=== PATIENT | female | born 1950 | race Caucasian/White ===

== ENCOUNTER 2017-09-15 15:40 | Emergency (ER) | payer MEDICARE, MEDICAID ==
[~2017-09-15] VITALS: Ht 160 cm; Wt 111.0 kg
[~2017-09-15 15:40] MED LIST: ALBU18HF INH; ALPR0.254 PO; AMIL5TAB2 PO; AMIO400T5 PO; AMLO2.5T PO; ASPI-621 PO; ATEN25TA PO; ATEN50TA41 PO; AZIT500T PO; BISA5TAB5 PO; CHOL500045 PO; CLIN300C8 PO; DIGO0.12 PO; DIGO125T PO; DILT120T3 PO; DILT180C53 PO; DILT300C2 PO; DILT360C26 PO; DIPH1TAB PO; DIPH25CA61 PO; DOCU-131 PO; DRON400T PO; DUCOLAX PO; ESOM40CA TP; FLUT1DIS3 INH; FURO-93 PO; FURO10VI37 PO; FURO80TA77 PO; GUAI200T3 PO; HYDR-3237 PO; HYDR-3307 PO; HYDR25TA11 PO; HYDR2TAB40 PO; HYDR8TAB PO; IPRA4AER INH; LACT10SO28 PO; LIDO700A5 TD; LORA1TAB PO; MELA2.5T PO; NYST1000 PO; NYST1POW2 TP; PANT40TA3 PO; POLY17PO5 PO; POTA10TA11 PO; POTA20TA14 PO; POTA20TA91 PO; PRAM0.255 PO; PRAM0.37 PO; PRAM0.753 PO; PRAM0.754 PO; PROM25TA10 PO; PSYL0.5215 PO; SENN1TAB67 PO; SPIR50TA PO; TOPI50TA35 PO; WARF1TAB9 PO; WARF2TAB PO; WARF2TAB7 PO; WARF5TAB7 PO; lido TP; lidoderm
[2017-09-15 15:43] VITALS: BP 117/47
[2017-09-15 16:54] LABS: BASOPHILS # (AUTO) 0.01 x10^3/uL (0-0.1); BASOPHILS % (AUTO) 0 % (0-1); EOSINOPHILS % (AUTO) 0 % (1-7); LYMPHOCYTES # (AUTO) 1.09 x10^3/uL (1-3.4); LYMPHOCYTES % (AUTO) 16 % (22-44); MD NO; MEAN CORPUSCULAR HEMOGLOBIN 29.4 pg (27.0-34.8); MEAN CORPUSCULAR VOLUME 89.1 fL (80-100); MEAN PLATELET VOLUME 7.9 fL (7.4-10.4); MONOCYTES # (AUTO) 0.54 x10^3/uL (0.2-0.8); MONOCYTES % (AUTO) 8 % (2-9); NEUTROPHILS # (AUTO) 5.04 x10^3/uL (1.8-6.8); NEUTROPHILS % (AUTO) 75 % (42-75); PLATELET COUNT 189 x10^3/uL (130-400); RED CELL DISTRIBUTION WIDTH 14.8 % (9.6-15.2)
[2017-09-15 17:00] LABS: INTERNATIONAL NORMALIZED RATIO 2.98 (0.93-1.1); PROTHROMBIN TIME 30.3 Seconds (9.6-11.5)
[2017-09-15] MEDS ORDERED: SODIUM CHLORIDE FLUSH 10ML SYR IVF ONE (17:00)
[2017-09-15 17:02] LABS: ALANINE AMINOTRANSFERASE 17 U/L (12-78); ALBUMIN 2.9 g/dL (3.4-5.0); ANION GAP 6 mmol/L (5-15); CALCIUM 8.1 mg/dL (8.5-10.1); CHLORIDE 107 mmol/L (98-107); CREATININE 0.87 mg/dL (0.55-1.02)
[2017-09-15 17:06] LABS: ALKALINE PHOSPHATASE 86 U/L (45-117); BILIRUBIN,TOTAL 0.3 mg/dL (0.2-1.0); TOTAL PROTEIN 6.2 g/dL (6.4-8.2)
== END 2017-09-15 20:25 | disposition home or self-care (01) ==
LOC: ED 17:30
DX: R60.0 Localized edema (principal); I11.0 Hypertensive heart disease with heart failure; I50.9 Heart failure, unspecified; G20 Parkinson's disease; I48.91 Unspecified atrial fibrillation
CPT/HCPCS: 36415; 71045; 80053; 83880; 85025; 85610; 85730; 93005; 99285

== ENCOUNTER 2018-07-21 17:30 | Emergency (ER) | payer MEDICARE, MEDICAID ==
[~2018-07-21] VITALS: Ht 160 cm; Wt 86.0 kg
[~2018-07-21 17:30] MED LIST changes: -AMLO2.5T PO; +AMLO2.5T3 PO; -ASPI-621 PO; +ASPI81TA45 PO; +WARF-36 PO; -WARF2TAB7 PO; +WARF2TAB99 PO; -WARF5TAB7 PO
[2018-07-21 22:24] VITALS: BP 99/52
== END 2018-07-22 00:31 | disposition home or self-care (01) ==
LOC: ED 17:54
DX: T83.9XXA Unspecified complication of genitourinary prosthetic device, implant and graft, initial encounter (principal)
CPT/HCPCS: 51701; 51705; 99283; P9612